=== PATIENT | male | born 1960 | race Caucasian/White ===

== ENCOUNTER 2020-10-06 10:53 | Inpatient (IN) ==
[2020-10-06] MEDS ORDERED: 0.9 % Sodium Chloride 1,000 ML ONE ×2 (11:11→12:32)
[2020-10-06] MEDS ORDERED: Nitroglycerin 0.4 MG TAB.SUBL SL PRN (11:11)
[2020-10-06] MEDS ORDERED: *HR* Ticagrelor 90 MG TABLET ONE (11:11)
[2020-10-06] MEDS ORDERED: *HR* Heparin 5,000 UNIT/ML VIAL ONE (11:11)
[2020-10-06] MEDS ORDERED: Aspirin 81 MG TAB.CHEW ONE (11:11)
[2020-10-06] MEDS ORDERED: *HR* Heparin 5,000 UNIT/ML VIAL SQ ONE (11:12)
[2020-10-06] MEDS ORDERED: *HR* Midazolam HCl 2 MG/2 ML VIAL ONE ×2 (11:14→11:50)
[2020-10-06] MEDS ORDERED: *HR* FentaNYL (PF) 100 MCG/2 ML VIAL ONE ×2 (11:15→11:50)
[2020-10-06] MEDS ORDERED: *HR* Heparin 5,000 UNIT/ML VIAL IVP ONE (11:15)
[2020-10-06] MEDS ORDERED: Nitroglycerin 0.4 MG TAB.SUBL SL ONE (11:15)
[2020-10-06 11:35] LABS: Basophils # 0.1 K/mcL (0.0-0.2); Basophils % 0.8 %; Eosinophils # 0.2 K/mcL (0.0-0.6); Hematocrit 50.4 % (37.5-50.1); Hemoglobin 17.2 g/dL (12.9-16.9); Immature Granulocytes % 0.2 % (0-4); Lymphocytes # 1.7 K/mcL (0.6-4.6); Mean Corpuscular HGB Conc 34.1 g/dL (31.6-35.5); Mean Corpuscular Hemoglobin 30.6 pg (28.0-33.3); Mean Corpuscular Volume 89.7 fL (83.0-100.0); Monocytes # 0.8 K/mcL (0.0-1.3); Monocytes % 9.5 %; Neutrophils # 5.9 K/mcL (1.6-8.9); Platelet Count 168 K/mcL (140-400); Red Blood Count 5.62 M/mcL (4.19-5.50); Red Cell Distribution Width 12.6 % (11.5-14.5); Segmented Neutrophils % 67.5 %; White Blood Count 8.7 K/mcL (4.3-11.1)
[2020-10-06] MEDS ORDERED: Tirofiban 12.5 MG/250ML 12.5 MG/250 ML BAG ONE (11:36)
[2020-10-06 11:42] LABS: Prothrombin Time 11.8 Seconds (9.4-12.1)
[2020-10-06 11:44] LABS: Activated Partial Thrombo Time 32.1 Seconds (26.0-36.0)
[2020-10-06 11:55] LABS: BUN/Creatinine Ratio 15 (6-26); Blood Urea Nitrogen 19 mg/dL (6-20); Calcium 9.8 mg/dL (8.6-10.3); Carbon Dioxide 24 mEq/L (23-29); Chloride 103 mEq/L (98-107); Glucose 140 mg/dL (70-105); Osmolality,Calculated 291 (280-300); Sodium 138 mEq/L (136-145); eGFR For African Americans > 60 (> 60); eGFR For Non-African Americans 59 (> 60)
[2020-10-06] MEDS ORDERED: Perflutren Lipid Microsphere 1.3 ML in 0.9 % Sodium Chloride 8.7 ML IVP PRN (12:04)
[2020-10-06 12:05] LABS: Troponin I 0.18 ng/mL (< 0.04)
[2020-10-06] MEDS ORDERED: Tirofiban 12.5 MG/250ML 12.5 MG/250 ML BAG IVC SCH (12:15)
[2020-10-06] MEDS ORDERED: ISOVUE-370 200 ML INFUS..BTL ONE ×2 (12:28→12:32)
[2020-10-06] MEDS ORDERED: *HR* Heparin 10,000 UNIT/10 ML VIAL ONE (12:32)
[2020-10-06] MEDS ORDERED: Nitroglycerin 1,000 MCG/5 ML VIAL IV ONE (12:32)
[2020-10-06] MEDS ORDERED: Heparin 1,000 UNITS/500 mL 500 ML ONE (12:32)
[2020-10-06] MEDS: Metoprolol XL (24 HR) Succ 25 MG TAB.ER.24H PO SCH (12:56)
[2020-10-06] MEDS: *HR* Ticagrelor 90 MG TABLET PO SCH (20:17)
[2020-10-07 05:43] LABS: Basophils % 0.2 %; Eosinophils # 0.1 K/mcL (0.0-0.6); Eosinophils % 0.9 %; Hematocrit 47.8 % (37.5-50.1); Hemoglobin 16.3 g/dL (12.9-16.9); Immature Granulocytes % 0.4 % (0-4); Lymphocytes # 1.3 K/mcL (0.6-4.6); Mean Corpuscular HGB Conc 34.1 g/dL (31.6-35.5); Mean Corpuscular Hemoglobin 30.2 pg (28.0-33.3); Mean Corpuscular Volume 88.5 fL (83.0-100.0); Mean Platelet Volume 12.3 fL (9.4-12.4); Monocytes # 0.9 K/mcL (0.0-1.3); Monocytes % 9.7 %; Neutrophils # 6.8 K/mcL (1.6-8.9); Platelet Count 148 K/mcL (140-400); Red Cell Distribution Width 12.8 % (11.5-14.5); Segmented Neutrophils % 74.8 %; White Blood Count 9.1 K/mcL (4.3-11.1)
[2020-10-07 06:01] LABS: BUN/Creatinine Ratio 14 (6-26); Blood Urea Nitrogen 14 mg/dL (6-20); Carbon Dioxide 22 mEq/L (23-29); Chloride 104 mEq/L (98-107); Glucose 119 mg/dL (70-105); Osmolality,Calculated 282 (280-300); Potassium 3.6 mEq/L (3.5-5.1); Sodium 135 mEq/L (136-145); eGFR For African Americans > 60 (> 60); eGFR For Non-African Americans > 60 (> 60)
[2020-10-07] MEDS: Metoprolol XL (24 HR) Succ 25 MG TAB.ER.24H PO SCH (07:55)
[2020-10-07] MEDS: *HR* Ticagrelor 90 MG TABLET PO SCH ×2 (07:55→19:54)
[2020-10-07] MEDS ORDERED: Aspirin 81 MG TAB.CHEW PO SCH (09:00)
[2020-10-07] MEDS ORDERED: lisinopriL 5 MG TABLET PO SCH (12:15)
[2020-10-07] MEDS ORDERED: Nitroglycerin 0.4 MG TAB.SUBL SL PRN (13:32)
[2020-10-08 07:33] VITALS: O2SAT 98
[2020-10-08 07:39] VITALS: TEMP 98.1
[2020-10-08] MEDS: *HR* Ticagrelor 90 MG TABLET PO SCH (08:01)
[2020-10-08] MEDS ORDERED: Aspirin 81 MG TAB.CHEW PO SCH (09:00)
[2020-10-08] MEDS ORDERED: lisinopriL 5 MG TABLET PO SCH (09:00)
[2020-10-08] MEDS ORDERED: Metoprolol XL (24 HR) Succ 25 MG TAB.ER.24H PO SCH (09:00)
[2020-10-08 09:37] VITALS: BP 127/94; PULSE 85
== END 2020-10-08 11:19 | disposition home or self-care (01) | DRG 247 ==
LOC: ICNU 10:53 → EMEROOARM 10:53 → ICNU 11:20
PROVIDERS: ADMIT Internal Medicine Interventional Cardiology; ATTEND Internal Medicine Interventional Cardiology

== ENCOUNTER 2020-10-22 00:03 | Observation (INO) ==
[2020-10-22] MEDS ORDERED: Naloxone 0.4 MG/ML INJ IVP PRN (07:11)
[2020-10-22] MEDS ORDERED: Ondansetron 4 MG/2 ML VIAL IVP PRN (07:11)
[2020-10-22] MEDS ORDERED: *HR* Heparin 5,000 UNIT/ML VIAL IVP PRN ×2 (07:12)
[2020-10-22] MEDS ORDERED: Heparin 25,000UNIT/250ML 1/2NS 25,000 UNIT/250 ML IV.SOLN IVC SCH (07:15)
[2020-10-22] MEDS ORDERED: Nitroglycerin 0.4 MG TAB.SUBL SL PRN (07:59)
[2020-10-22 08:16] LABS: Basophils % 0.4 %; Eosinophils # 0.1 K/mcL (0.0-0.6); Eosinophils % 1.6 %; Hematocrit 41.3 % (37.5-50.1); Hemoglobin 13.9 g/dL (12.9-16.9); Immature Granulocytes % 0.4 % (0-4); Lymphocytes # 1.5 K/mcL (0.6-4.6); Lymphocytes % 28.6 %; Mean Corpuscular HGB Conc 33.7 g/dL (31.6-35.5); Mean Corpuscular Hemoglobin 30.5 pg (28.0-33.3); Mean Corpuscular Volume 90.6 fL (83.0-100.0); Monocytes # 0.4 K/mcL (0.0-1.3); Monocytes % 7.5 %; Neutrophils # 3.1 K/mcL (1.6-8.9); Platelet Count 155 K/mcL (140-400); Red Blood Count 4.56 M/mcL (4.19-5.50); Red Cell Distribution Width 12.3 % (11.5-14.5); Segmented Neutrophils % 61.5 %; White Blood Count 5.1 K/mcL (4.3-11.1)
[2020-10-22] MEDS ORDERED: D5% in Water 1,000 ML IVC PRN (08:25)
[2020-10-22] MEDS ORDERED: *HR* Dextrose 50 % in Water (Vial) 50 ML VIAL IVP PRN (08:25)
[2020-10-22] MEDS ORDERED: Dextrose Gel 15 GM/37.5 ML TUBE PO PRN ×2 (08:25)
[2020-10-22] MEDS ORDERED: Nicotine 14 MG PATCH.TD24 TD PRN (08:25)
[2020-10-22 08:29] LABS: INR 1.1; Prothrombin Time 12.5 Seconds (9.4-12.1)
[2020-10-22 08:32] LABS: Activated Partial Thrombo Time 46.2 Seconds (26.0-36.0)
[2020-10-22 08:37] LABS: BUN/Creatinine Ratio 15 (6-26); Blood Urea Nitrogen 16 mg/dL (6-20); Calcium 8.8 mg/dL (8.6-10.3); Carbon Dioxide 25 mEq/L (23-29); Chloride 108 mEq/L (98-107); Glucose 95 mg/dL (70-105); Osmolality,Calculated 291 (280-300); Potassium 4.3 mEq/L (3.5-5.1); Sodium 140 mEq/L (136-145); eGFR For African Americans > 60 (> 60); eGFR For Non-African Americans > 60 (> 60)
[2020-10-22 08:39] LABS: Phosphorous 4.4 mg/dL (2.7-4.5)
[2020-10-22 08:46] LABS: Troponin I 0.31 ng/mL (< 0.04)
[2020-10-22] MEDS ORDERED: *HR* Ticagrelor 90 MG TABLET PO SCH (09:00)
[2020-10-22] MEDS ORDERED: Metoprolol XL (24 HR) Succ 25 MG TAB.ER.24H PO SCH (09:00)
[2020-10-22] MEDS ORDERED: Aspirin 81 MG TAB.CHEW PO SCH (09:00)
[2020-10-22] MEDS ORDERED: Perflutren Lipid Microsphere 1.3 ML in 0.9 % Sodium Chloride 8.7 ML IVP PRN (09:21)
[2020-10-22 09:39] LABS: Creatine Kinase 295 Units/L (30-223)
[2020-10-22 09:43] VITALS: TEMP 97.7
[2020-10-22 09:53] LABS: Estimated Average Glucose 120 mg/dl; Hemoglobin A1C 5.8 %
[2020-10-22 11:43] VITALS: BP 135/82; PULSE 72; O2SAT 97
[2020-10-22] MEDS ORDERED: Insulin LISPRO 300 UNITS/3 ML VIAL SUBQ SCH (12:00)
[2020-10-22] MEDS ORDERED: lisinopriL 5 MG TABLET PO SCH (13:00)
== END 2020-10-22 14:44 | disposition home or self-care (01) ==
LOC: 2ANU → SUATTDRO 03:35
PROVIDERS: ADMIT Internal Medicine; ATTEND Internal Medicine